=== PATIENT | male | born 1965 | race Caucasian/White ===

== ENCOUNTER → 2018-02-10 | Outpatient (CLI) | payer BC ==
[2018-02-10 11:34] LABS: Basophils % (A) 1 %; Eosinophils # (A) 0.2 k/uL (0-0.7); Eosinophils % (A) 4 %; HCT 47.4 % (39.0-53.0); HGB 16.4 gm/dL (13.0-17.5); Lymphocytes # (A) 2.6 k/uL (1.0-4.8); Lymphocytes % (A) 55 %; MCH 31.9 pg (25.0-35.0); MCHC 34.6 g/dL (31.0-37.0); MCV 92.3 fL (80.0-100.0); Mean Platelet Volume 6.5; Monocytes # (A) 0.3 k/uL (0-1.0); Monocytes % (A) 6 %; Neutrophils # (A) 1.4 k/uL (1.3-7.7); Neutrophils % (A) 30 %; Platelet Count 118 k/uL (150-450); RBC 5.13 m/uL (4.30-5.90); RDW 13.9 % (11.5-15.5); WBC 4.7 k/uL (3.8-10.6)
[2018-02-10 12:08] LABS: ALT 77 U/L (21-72); AST 96 U/L (17-59); Alkaline Phosphatase 68 U/L (38-126); Anion Gap 10 mmol/L; Blood Urea Nitrogen 19 mg/dL (9-20); Calcium 8.6 mg/dL (8.4-10.2); Carbon Dioxide 22 mmol/L (22-30); Chloride 110 mmol/L (98-107); Glucose 100 mg/dL (74-99); Potassium 4.3 mmol/L (3.5-5.1); Sodium 142 mmol/L (137-145); Total Protein 7.9 g/dL (6.3-8.2)
[2018-02-11 13:26] LABS: T4/T8 Ratio (CD4:CD8) 1.4 (1.0-3.7)
== END | disposition home or self-care (01) ==
LOC: LABWHC1 11:15
PROVIDERS: ATTEND Internal Medicine Infectious Disease
DX: B20 Human immunodeficiency virus [HIV] disease (principal)
CPT/HCPCS: 36415; 80053; 85025; 86360; 87536

== ENCOUNTER → 2018-06-08 | Outpatient (CLI) | payer BC ==
[2018-06-09 02:54] LABS: ALT 54 U/L (10-49); AST 70 U/L (14-35)
== END | disposition home or self-care (01) ==
LOC: LABWHC1 16:20
PROVIDERS: ATTEND Internal Medicine Infectious Disease
DX: R74.0 Nonspecific elevation of levels of transaminase and lactic acid dehydrogenase [LDH] (principal)
CPT/HCPCS: 36415; 84450; 84460

== ENCOUNTER → 2019-03-02 | Outpatient (CLI) | payer BC ==
[2019-03-02 10:28] LABS: Basophils # (A) 0.1 k/uL (0-0.2); Basophils % (A) 1 %; Eosinophils # (A) 0.2 k/uL (0-0.7); Eosinophils % (A) 3 %; HCT 49.1 % (39.0-53.0); HGB 17.1 gm/dL (13.0-17.5); Lymphocytes # (A) 2.6 k/uL (1.0-4.8); Lymphocytes % (A) 39 %; MCHC 34.8 g/dL (31.0-37.0); MCV 94.6 fL (80.0-100.0); Mean Platelet Volume 6.8; Monocytes # (A) 0.6 k/uL (0-1.0); Monocytes % (A) 9 %; Neutrophils % (A) 45 %; Platelet Count 137 k/uL (150-450); RBC 5.19 m/uL (4.30-5.90); RDW 14.6 % (11.5-15.5); WBC 6.8 k/uL (3.8-10.6)
[2019-03-02 16:21] LABS: African American GFR (CKD) 88.4 (60.0-200.0); Albumin/Globulin Ratio 1.29 (1.60-3.17); Anion Gap 7.2 mmol/L (4.00-12.00); BUN/Creat Ratio 14.55 Ratio (12.00-20.00); Calcium 9.1 mg/dL (8.7-10.3); Carbon Dioxide 23.8 mmol/L (21.6-31.8); Chol/HDL Ratio 3.02; Globulin 3.1 g/dL (1.6-3.3); LDL Cholesterol,Calculated 80.4 mg/dL (0.0-131.0); Potassium 4.4 mmol/L (3.5-5.5); Total Bilirubin 0.7 mg/dL (0.3-1.2); Total Protein 7.1 g/dL (6.2-8.2); VLDL Calculation 20.6 mg/dL (5.00-40.00)
[2019-03-03 13:43] LABS: T4/T8 Ratio (CD4:CD8) 1.5 (1.0-3.7)
== END | disposition home or self-care (01) ==
LOC: LABWHC1 08:51
PROVIDERS: ATTEND Internal Medicine Infectious Disease
DX: Z00.00 Encounter for general adult medical examination without abnormal findings (principal); B20 Human immunodeficiency virus [HIV] disease
CPT/HCPCS: 36415; 80053; 80061; 84443; 85025; 86360; 87536

== ENCOUNTER 2019-06-20 09:50 | Emergency (ER) | payer BC ==
[2019-06-20 10:19] VITALS: PULSE 71; RESP 18
[2019-06-20] MEDS ORDERED: KETOROLAC 30 MG/ML 1 ML VIAL IVP STA (11:16)
--- NOTE | 2019-06-20 11:19 | ED ---
General Adult HPI - General Chief complaint: Abdominal Pain Stated complaint: Back and abd pain Time Seen by Provider: 06/20/19 11:07 Source: patient, RN notes reviewed Mode of arrival: ambulatory - History of Present Illness Initial comments: 54-year-old male with a past medical history of HIV presents to the emergency department for chief complaint of right flank burning 2 days. Patient states he has had burning on the right side of his flank. States it does somewhat rad iate around to his abdomen. States his abdomen feels like a bolder is in it. States it is not bothering him much at this point. States he is passing gas. Denies fevers or chills. Denies any aggravating factors of this burning flank pain but does state that walking makes it better. Denies fevers or chills. Denies dysuria. Patient has no other complaints at this time including shortness of breath, chest pain, abdominal pain, nausea or vomiting, headache, or visual changes. - Related Data Allergies Allergy/AdvReac Type Severity Reaction Status Date / Time No Known Allergies Allergy Verified 06/20/19 10:19 Review of Systems ROS Statement: Those systems with pertinent positive or pertinent negative responses have been documented in the HPI. ROS Other: All systems not noted in ROS Statement are negative. Past Medical History Additional Past Medical History / Comment(s): hiv History of Any Multi-Drug Resistant Organisms: None Reported Additional Past Surgical History / Comment(s): pilonidal cyst removed Past Psychological History: No Psychological Hx Reported Smoking Status: Former smoker Past Alcohol Use History: Rare Past Drug Use History: None Reported General Exam General appearance: alert, in no apparent distress Head exam: Present: atraumatic, normocephalic, normal inspection Eye exam: Present: normal appearance, PERRL, EOMI. Absent: scleral icterus, conjunctival injection, periorbital swelling ENT exam: Present: normal exam, mucous membranes moist Neck exam: Present: normal inspection, full ROM. Absent: tenderness, men ingismus, lymphadenopathy Respiratory exam: Present: normal lung sounds bilaterally. Absent: respiratory distress, wheezes, rales, rhonchi, stridor Cardiovascular Exam: Present: regular rate, normal rhythm, normal heart sounds. Absent: systolic murmur, diastolic murmur, rubs, gallop, clicks GI/Abdominal exam: Present: soft, normal bowel sounds. Absent: distended, tenderness, guarding, rebound, rigid Back exam: Absent: CVA tenderness (R), CVA tenderness (L) Course Vital Signs 06/20/19 10:15 Temperature 98.5 F Pulse Rate 71 Respiratory 18 Rate Blood Pressure 133/82 O2 Sat by Pulse 97 Oximetry Medical Decision Making - Medical Decision Making 54-year-old male presents for right flank burning as well as feeling like he has pressure in his abdomen. Abdominal exam revealed a completely nontender abdomen. There is no CVA tenderness. Vitals are stable. CBC and CMP are unremarkable. Patient states he recently had a fasting glucose that was normal. Urinalysis unremarkable. No evidence of blood or white blood cells. X-ray KUB was obtained which shows an overall not obstructive bowel gas pattern. I reevaluated patient and again has a completely nontender abdomen. I discussed possibility of doing a CAT scan at this time. Patient would prefer to be discharged home to try Motrin and Tylenol and to return if he has worsening symptoms. He refused any pain medication including Toradol here in the emergency department.I discussed this case with attending Dr. Pelayo who agrees with this assessment and treatment plan. - Lab Data Result diagrams: 06/20/19 11:32 06/20/19 11:32 Lab Results 06/20/19 06/20/19 06/20/19 Range/Units 11:32 11:32 11:32 WBC 6.5 (3.8-10.6) k/uL RBC 5.19 (4.30-5.90) m/uL Hgb 17.0 (13.0-17.5) gm/dL Hct 47.9 (39.0-53.0) % MCV 92.3 (80.0-100.0) fL MCH 32.8 (25.0-35.0) pg MCHC 35.6 (31.0-37.0) g/dL RDW 13.1 (11.5-15.5) % Plt Count 144 L (150-450) k/uL Neutrophils % 45 % Lymphocytes % 42 % Monocytes % 8 % Eosinophils % 3 % Basophils % 0 % Neutrophils # 2.9 (1.3-7.7) k/uL Lymphocytes # 2.7 (1.0-4.8) k/uL Monocytes # 0.5 (0-1.0) k/uL Eosinophils # 0.2 (0-0.7) k/uL Basophils # 0.0 (0-0.2) k/uL Sodium 142 (137-145) mmol/L Potassium 4.2 (3.5-5.1) mmol/L Chloride 110 H (98-107) mmol/L Carbon Dioxide 21 L (22-30) mmol/L Anion Gap 11 mmol/L BUN 15 (9-20) mg/dL Creatinine 1.04 (0.66-1.25) mg/dL Est GFR (CKD-EPI)AfAm >90 (>60 ml/min/1.73 sqM) Est GFR (CKD-EPI)NonAf 81 (>60 ml/min/1.73 sqM) Glucose 158 H (74-99) mg/dL Calcium 9.6 (8.4-10.2) mg/dL Total Bilirubin 0.8 (0.2-1.3) mg/dL AST 76 H (17-59) U/L ALT 43 (4-49) U/L Alkaline Phosphatase 73 (38-126) U/L Total Protein 8.6 H (6.3-8.2) g/dL Albumin 4.4 (3.5-5.0) g/dL Amylase 58 (30-110) U/L Lipase 211 (23-300) U/L Urine Color Yellow Urine Appearance Clear (Clear) Urine pH 5.5 (5.0-8.0) Ur Specific Carney 1.022 (1.001-1.035) Urine Protein Negative (Negative) Urine Glucose (UA) 3+ H (Negative) Urine Ketones Negative (Negative) Urine Blood Negative (Negative) Urine Nitrite Negative (Negative) Urine Bilirubin Negative (Negative) Urine Urobilinogen <2.0 (<2.0) mg/dL Ur Leukocyte Esterase Negative (Negative) Disposition Clinical Impression: Flank pain Disposition: HOME SELF-CARE Condition: Good Instructions (If sedation given, give patient instructions): Flank Pain (ED) Additional Instructions: Please follow-up with your primary care provider in one to 2 days. If you have any worsening symptoms or develop fevers return immediately to the emergency department. Is patient prescribed a controlled substance at d/c from ED?: No Referrals: Steve Horton DO [Primary Care Provider] - 1-2 days Time of Disposition: 12:54
[2019-06-20 11:54] LABS: Basophils % (A) 0 %; Eosinophils # (A) 0.2 k/uL (0-0.7); Eosinophils % (A) 3 %; HCT 47.9 % (39.0-53.0); Lymphocytes # (A) 2.7 k/uL (1.0-4.8); Lymphocytes % (A) 42 %; MCH 32.8 pg (25.0-35.0); MCHC 35.6 g/dL (31.0-37.0); MCV 92.3 fL (80.0-100.0); Mean Platelet Volume 6.8; Monocytes # (A) 0.5 k/uL (0-1.0); Monocytes % (A) 8 %; Neutrophils # (A) 2.9 k/uL (1.3-7.7); Neutrophils % (A) 45 %; Platelet Count 144 k/uL (150-450); RBC 5.19 m/uL (4.30-5.90); RDW 13.1 % (11.5-15.5); WBC 6.5 k/uL (3.8-10.6)
[2019-06-20 12:02] LABS: ALT 43 U/L (4-49); AST 76 U/L (17-59); African American GFR (CKD) >90 (>60 ml/min/1.73 sqM); Albumin 4.4 g/dL (3.5-5.0); Alkaline Phosphatase 73 U/L (38-126); Amylase 58 U/L (30-110); Anion Gap 11 mmol/L; Blood Urea Nitrogen 15 mg/dL (9-20); Calcium 9.6 mg/dL (8.4-10.2); Carbon Dioxide 21 mmol/L (22-30); Chloride 110 mmol/L (98-107); Glucose 158 mg/dL (74-99); Non-African American GFR(CKD) 81 (>60 ml/min/1.73 sqM); Potassium 4.2 mmol/L (3.5-5.1); Sodium 142 mmol/L (137-145); Total Bilirubin 0.8 mg/dL (0.2-1.3); Total Protein 8.6 g/dL (6.3-8.2)
--- NOTE | 2019-06-20 12:03 | XR ---
EXAMINATION TYPE: XR KUB DATE OF EXAM: 06/20/2019 COMPARISON: NONE HISTORY: Pain TECHNIQUE: Single supine KUB image of the abdomen is obtained FINDINGS: Small bowel demonstrates no evidence for dilatation or air fluid levels. Gas and fecal material is seen in non-distended colon. No convincing evidence for pneumoperitoneum. No unusual calcifications. The lung bases are clear. The osseous structures are intact. IMPRESSION: 1. Overall nonobstructive bowel gas pattern.
[2019-06-20 12:07] LABS: Appearance,Urine Clear (Clear); Bilirubin,Urine Negative (Negative); Blood,Urine Negative (Negative); Color,Urine Yellow; Glucose,Urine (UA) 3+ (Negative); Ketones,Urine Negative (Negative); Leukocyte Esterase,Urine Negative (Negative); Nitrite,Urine Negative (Negative); PH, Urine 5.5 (5.0-8.0); Protein,Urine Negative (Negative); Specific Gravity,Urine 1.022 (1.001-1.035); Urobilinogen,Urine <2.0 mg/dL (<2.0)
[2019-06-20 13:07] VITALS: BP 129/88; TEMP 98.1
== END 2019-06-20 13:05 | disposition home or self-care (01) ==
LOC: EC 09:50
DX: R10.9 Unspecified abdominal pain (principal); M54.9 Dorsalgia, unspecified; R14.3 Flatulence; Z87.891 Personal history of nicotine dependence; Z53.20 Procedure and treatment not carried out because of patient's decision for unspecified reasons; Z21 Asymptomatic human immunodeficiency virus [HIV] infection status
CPT/HCPCS: 36415; 74018; 80053; 81003; 82150; 83690; 85025; 99284

== ENCOUNTER → 2020-03-19 | Outpatient (CLI) | payer BC | END | disposition home or self-care (01) | LOC: LABWHC1 10:45 | PROVIDERS: ATTEND Psychiatry & Neurology Neurology | DX: G72.9 Myopathy, unspecified (principal); R74.8 Abnormal levels of other serum enzymes | CPT/HCPCS: 36415; 82550; 83883; 86334 ==

== ENCOUNTER → 2020-06-10 | Outpatient (CLI) | payer BC ==
[2020-06-10 09:30] LABS: HCT 48.1 % (39.0-53.0); HGB 16.6 gm/dL (13.0-17.5); MCH 33.7 pg (25.0-35.0); MCHC 34.4 g/dL (31.0-37.0); MCV 97.8 fL (80.0-100.0); Mean Platelet Volume 7.4; Platelet Count 128 k/uL (150-450); RBC 4.92 m/uL (4.30-5.90); RDW 13.6 % (11.5-15.5)
== END | disposition home or self-care (01) ==
LOC: LABPAT 08:01
PROVIDERS: ATTEND Surgery
DX: Z01.818 Encounter for other preprocedural examination (principal)
CPT/HCPCS: 85027

== ENCOUNTER 2020-06-16 07:04 | Day surgery (SDC) | payer BC ==
[2020-06-11 13:04] VITALS: BMI 41.1
[~2020-06-16 07:04] MED LIST: ACETAMINOPHEN TAB 500 MG TAB PO PRN; DEXAMETHASONE SOD PHOSPHATE 4 MG/ML 1 ML VIAL IV ONE; HEPARIN SODIUM,PORCINE 5,000 UNIT/ML 1 ML VIAL SQ PRN; HYDROmorphone 0.5 MG/0.5 ML SYRINGE IVP PRN; LACTATED RINGERS 1,000 ML IV SCH; ONDANSETRON 4 MG/2 ML VIAL IVP ONE; ceFAZolin 3 GM in SODIUM CHLORIDE 0.9% 100 ML IVPB PRN
[2020-06-16 07:55] LABS: Glucose,Whole Blood 99 mg/dL (75-99)
[2020-06-16] MEDS ORDERED: LIDOCAINE 1% (10MG/ML) FOR IV START INTRADERMA ONE (08:04)
--- NOTE | 2020-06-16 08:54 | P.GSHP ---
History of Present Illness H&P Date: 06/16/20 Chief Complaint: Right inguinal hernia 55-year-old male here today for elective repair right inguinal hernia. Patient has had a bulge in the right groin for the last few years. Increasing in size. Mild pain and burning at times. No symptoms on the left. Patient is HIV-p ositive. Platelets are in the 120s. Past Medical History Additional Past Medical History / Comment(s): HIV, OCCASIONAL RASH IN FOLDS OF SKIN, ADOPTED-UNKNOWN FAMILY HX., BACK PAIN., RIGHT INGUINAL HERNIA., ? BORDERLINE DIABETES. History of Any Multi-Drug Resistant Organisms: None Reported Additional Past Surgical History / Comment(s): pilonidal cyst removed Past Anesthesia/Blood Transfusion Reactions: No Reported Reaction Past Psychological History: No Psychological Hx Reported Smoking Status: Former smoker Past Alcohol Use History: Rare Additional Past Alcohol Use History / Comment(s): QUIT SMOKING 1997 Past Drug Use History: None Reported - Past Family History Mother Family Medical History: Unable to Obtain Additional Family Medical History / Comment(s): ADOPTED Medications and Allergies Home Medications Medication Instructions Recorded Confirmed Type Elviteg/Cob/Emtri/Tenof Alafen 1 each PO DAILY 06/11/20 06/16/20 History [Genvoya Tablet] Meloxicam 15 mg PO DIRECTED PRN 06/11/20 06/16/20 History Naproxen Sodium [Aleve] 220 mg PO DIRECTED PRN 06/11/20 06/16/20 History Allergies Allergy/AdvReac Type Severity Reaction Status Date / Time No Known Allergies Allergy Verified 06/16/20 07:28 Surgical - Exam Vital Signs Temp Pulse Resp BP Pulse Ox 97.5 F L 61 18 136/68 100 06/16/20 07:41 06/16/20 07:41 06/16/20 07:41 06/16/20 07:41 06/16/20 07:41 Physical exam: General: Well-developed, well-nourished HEENT: Normocephalic, sclerae nonicteric Abdomen: Nontender, nondistended, reducible moderate sized right inguinal hernia Extremities: No edema Neuro: Alert and oriented Assessment and Plan (1) Right inguinal hernia Narrative/Plan: Will proceed with laparoscopic da Hoa assisted repair right inguinal hernia with mesh, possible bilateral at this time. Risks of bleeding, infection, recurrence, bladder and bowel injury, numbness, nerve injury, conversion to an open procedure were discussed with the patient. The patient understands and wishes to proceed. Current Visit: Yes Status: Acute Code(s): K40.90 - UNIL INGUINAL HERNIA, W/O OBST OR GANGR, NOT SPCF RECUR OMED Code(s): 936271232
[2020-06-16] MEDS ORDERED: MIDAZOLAM 2 MG/2 ML VIAL ONE (09:11)
[2020-06-16] MEDS ORDERED: GLYCOPYRROLATE 0.2 MG/ML 2 ML VIAL ONE (09:11)
[2020-06-16] MEDS ORDERED: ePHEDrine SULFATE/0.9% NACL/PF 50 MG/5 ML SYRINGE IV ONE (09:11)
[2020-06-16] MEDS ORDERED: KETAMINE 10 MG/ML 20 ML VIAL ONE (09:11)
[2020-06-16] MEDS ORDERED: SUCCINYLCHOLINE CHLORIDE VIAL 200 MG/10 ML VIAL IV ONE (09:11)
[2020-06-16] MEDS ORDERED: ROCURONIUM 10 MG/ML (10 ML VIAL) IV ONE (09:11)
[2020-06-16] MEDS ORDERED: NEOSTIGMINE 1 MG/ML 10 ML VIAL ONE (09:11)
[2020-06-16] MEDS ORDERED: PROPOFOL 10 MG/ML 20 ML VIAL IV ONE (09:11)
[2020-06-16] MEDS ORDERED: fentaNYL (PF) 50 MCG/ML 2 ML AMP ONE (09:11)
[2020-06-16] MEDS ORDERED: LIDOCAINE 1% INJ 10MG/ML (20 ML MDV) ONE (09:11)
[2020-06-16] MEDS ORDERED: BUPIVACAINE-EPI 0.5%-1:200,000 10 ML VIAL SQ ONE (09:44)
[2020-06-16] MEDS ORDERED: LACTATED RINGERS 1,000 ML IV ONE (10:06)
[2020-06-16] MEDS ORDERED: TAMSULOSIN 0.4 MG CAP.ER.24H PO STA (10:49)
--- NOTE | 2020-06-16 10:53 | P.OP ---
Date of Procedure: 06/16/20 Procedure(s) Performed: PREOPERATIVE DIAGNOSIS: Right inguinal hernia POSTOPERATIVE DIAGNOSIS: Same PROCEDURE: Laparoscopic repair right inguinal hernia with the da Hoa robot assistance with mesh SURGEON: Louis EBL: Minimal ANESTHESIA: General COMPLICATIONS: None OPERATIVE PROCEDURE: Patient was placed in the operating table in the supine position. The patient was placed under general anesthesia. The abdomen was prepped and draped in usual sterile fashion. A small curvilinear supraumbilical incision was made. The fascia was retracted anteriorly with Sisi forceps. The Veress needle was inserted. The saline drop test was normal. Insufflation took place to 15 mmHg. An 8 mm trocar was placed into the peritoneal cavity. 2 additional 8 mm trochars were placed in the right upper quadrant and left upper quadrant under visualization. The robotic arms were then brought in and docked into place. The fenestrated bipolar was used in the left arm and the laparoscopic maria elena was utilized in the right arm. A 30 8 mm scope was used in the up position. The peritoneal cavity was inspected. A very large direct right inguinal hernia present. There were no hernias seen on the left-hand side. The peritoneum was incised in a horizontal fashion cephalad to the internal inguinal ring. Following that careful dissection of the preperitoneal space took place. This took place using both electrocautery, sharp dissection but primarily blunt dissection. Visualization of the pubic tubercle and Salvador's ligament took place medially. Full dissection took place laterally as well. The hernia sac was fully dissected. The hernia defect was loosely reapproximated using a running 20 be locked suture. This same 20 be locked suture was brought medially and after the mesh was flattened out appropriately I sutured the mesh to the medial aspect of our dissection from the pubic tubercle cephalad. The peritoneal defect was then closed using a locking 2-0 VLok suture. The large hernia sac was incorporated into the perineal closure. A single 3-0 Vicryl suture was used to reapproximate a small defect in the peritoneum. The pneumoperitoneum was then evacuated. The skin of all 3 sites was closed using a 4-0 Monocryl stitch. Skin glue was then applied. DISPOSITION: Stable to recovery room
[2020-06-16 11:08] VITALS: TEMP 97
[2020-06-16 11:12] LABS: Glucose,Whole Blood 125 mg/dL (75-99)
[2020-06-16] MEDS ORDERED: ACETAMINOPHEN TAB 325 MG TAB PO SCH (12:00)
[2020-06-16 12:21] VITALS: RESP 16
[2020-06-16 13:19] VITALS: BP 133/75; PULSE 63
[2020-06-16] MEDS ORDERED: IBUPROFEN 600 MG TAB PO SCH (15:00)
== END 2020-06-16 13:33 | disposition home or self-care (01) ==
LOC: OR 07:04
PROVIDERS: ATTEND Surgery
DX: K40.90 Unilateral inguinal hernia, without obstruction or gangrene, not specified as recurrent (principal); B20 Human immunodeficiency virus [HIV] disease; E66.01 Morbid (severe) obesity due to excess calories; Z98.890 Other specified postprocedural states; Z79.899 Other long term (current) drug therapy; Z87.891 Personal history of nicotine dependence; Z68.39 Body mass index [BMI] 39.0-39.9, adult
CPT/HCPCS: 49650; C1781; J2250; J0330; J1644; J1100; J2710; J0690; J2405; J2001; J3010; J2704

== ENCOUNTER → 2021-04-20 | Outpatient (CLI) | payer BC ==
[2021-04-20 22:28] LABS: Basophils # (A) 0.05 X 10*3/uL (0.00-0.10); Basophils % (A) 0.7 %; Eosinophils # (A) 0.15 X 10*3/uL (0.04-0.35); Eosinophils % (A) 2.2 %; HCT 50.2 % (39.6-50.0); HGB 17.4 g/dL (13.0-17.0); Lymphocytes # (A) 3.42 X 10*3/uL (0.90-5.00); Lymphocytes % (A) 49.2 %; MCH 31.7 pg (27.0-32.0); MCHC 34.7 g/dL (32.0-37.0); MCV 91.4 fL (80.0-97.0); Mean Platelet Volume 9.8 fL (9.5-12.2); Monocytes # (A) 0.72 X 10*3/uL (0.20-1.00); Monocytes % (A) 10.4 %; Neutrophils % (A) 37.4 %; Platelet Count 145 X 10*3/uL (140-440); RBC 5.49 X 10*6/uL (4.40-5.60); RDW 12.5 % (11.5-14.5); WBC 6.95 X 10*3/uL (4.50-10.00)
[2021-04-21 03:55] LABS: African American GFR (CKD) 71.2 (60.0-200.0); Anion Gap 13.6 mmol/L (4.00-12.00); BUN/Creat Ratio 15.38 Ratio (12.00-20.00); Calcium 9.2 mg/dL (8.7-10.3); Carbon Dioxide 18.4 mmol/L (21.6-31.8); Non-African American GFR(CKD) 61.4 (60.0-200.0); Potassium 4.2 mmol/L (3.5-5.5)
[2021-04-21 13:11] LABS: T4/T8 Ratio (CD4:CD8) 2.2 (1.0-3.7)
[2021-04-21 21:15] LABS: HIV-1 RNA Not detected (Not detected); HIV-1 RNA, Quant <40 Copies/mL (<40)
== END | disposition home or self-care (01) ==
LOC: LABWHC1 15:47
PROVIDERS: ATTEND Internal Medicine Infectious Disease
DX: B20 Human immunodeficiency virus [HIV] disease (principal)
CPT/HCPCS: 36415; 80048; 85025; 86360; 87536

== ENCOUNTER → 2021-11-05 | Outpatient (CLI) | payer BC ==
[2021-11-05 14:20] LABS: Basophils # (A) 0.04 X 10*3/uL (0.00-0.10); Basophils % (A) 0.7 %; Eosinophils # (A) 0.18 X 10*3/uL (0.04-0.35); HCT 46.3 % (39.6-50.0); HGB 16.1 g/dL (13.0-17.0); Immature Grans, Automated 0.3 %; Lymphocytes # (A) 1.83 X 10*3/uL (0.90-5.00); Lymphocytes % (A) 30.9 %; MCH 31.8 pg (27.0-32.0); MCHC 34.8 g/dL (32.0-37.0); MCV 91.3 fL (80.0-97.0); Mean Platelet Volume 10.1 fL (9.5-12.2); Monocytes # (A) 0.73 X 10*3/uL (0.20-1.00); Monocytes % (A) 12.3 %; NRBC Per 100 WBC 0 /100 WBCS (0.0-0.0); Neutrophils # (A) 3.12 X 10*3/uL (1.80-7.70); Neutrophils % (A) 52.8 %; Platelet Count 106 X 10*3/uL (140-440); RBC 5.07 X 10*6/uL (4.40-5.60); RDW 13.1 % (11.5-14.5); WBC 5.92 X 10*3/uL (4.50-10.00)
[2021-11-05 14:49] LABS: African American GFR (CKD) 77.9 (60.0-200.0); Anion Gap 12.5 mmol/L (10.00-18.00); BUN/Creat Ratio 11.67 Ratio (12.00-20.00); Calcium 9.3 mg/dL (8.7-10.3); Carbon Dioxide 22.5 mmol/L (20.0-27.5); Non-African American GFR(CKD) 67.2 (60.0-200.0); Potassium 4.1 mmol/L (3.5-5.5)
[2021-11-06 13:11] LABS: HIV-1 RNA Not detected (Not detected); HIV-1 RNA, Quant <40 Copies/mL (<40); LOG HIV Copies/mL <1.60 (<1.60)
[2021-11-06 14:12] LABS: T4/T8 Ratio (CD4:CD8) 2.6 (1.0-3.7)
== END | disposition home or self-care (01) ==
LOC: LABWHC1 09:24
PROVIDERS: ATTEND Internal Medicine Infectious Disease
DX: B20 Human immunodeficiency virus [HIV] disease (principal)
CPT/HCPCS: 36415; 80048; 85025; 86360; 87536

== ENCOUNTER → 2022-05-18 | Outpatient (CLI) | payer BC ==
[2022-05-18 23:45] LABS: Appearance,Urine Clear (Clear); Bilirubin,Urine Negative (Negative); Blood,Urine Negative (Negative); Color,Urine Yellow (Yellow); Ketones,Urine Negative (Negative); Nitrite,Urine Negative (Negative); Specific Gravity,Urine 1.021 (1.001-1.030); Urobilinogen,Urine 0.2 (0.2,1.0)
[2022-05-19 00:01] LABS: HCT 45.6 % (39.6-50.0); MCH 31.9 pg (27.0-32.0); MCHC 35.1 g/dL (32.0-37.0); Mean Platelet Volume 9.7 fL (9.5-12.2); NRBC Per 100 WBC 0 /100 WBCS (0.0-0.0); Platelet Count 139 X 10*3/uL (140-440); RBC 5.01 X 10*6/uL (4.40-5.60); RDW 12.9 % (11.5-14.5); WBC 7.42 X 10*3/uL (4.50-10.00)
[2022-05-19 00:21] LABS: ALT 32 U/L (10-49); AST 65 U/L (14-35); African American GFR (CKD) 72.2 (60.0-200.0); Albumin 4.5 g/dL (3.8-4.9); Albumin/Globulin Ratio 1.17 (1.60-3.17); Alkaline Phosphatase 79 U/L (41-126); BUN/Creat Ratio 10.39 Ratio (12.00-20.00); Blood Urea Nitrogen 13.2 mg/dL (9.0-27.0); Calcium 9.5 mg/dL (8.7-10.3); Carbon Dioxide 19.9 mmol/L (20.0-27.5); Chloride 105 mmol/L (96-109); Chol/HDL Ratio 4.07 Ratio; Globulin 3.9 g/dL (1.6-3.3); Glucose 94 mg/dL (70-110); LDL Cholesterol,Calculated 124.7 mg/dL (0.0-131.0); Non-African American GFR(CKD) 62.3 (60.0-200.0); Potassium 4.1 mmol/L (3.5-5.5); Sodium 139 mmol/L (135-145); Total Protein 8.4 g/dL (6.2-8.2)
== END | disposition home or self-care (01) ==
LOC: LABWHC1 15:38
PROVIDERS: ATTEND Internal Medicine Infectious Disease
DX: Z00.00 Encounter for general adult medical examination without abnormal findings (principal); E03.9 Hypothyroidism, unspecified; B20 Human immunodeficiency virus [HIV] disease
CPT/HCPCS: 36415; 80053; 80061; 81003; 82306; 83036; 84153; 84439; 84443; 85027

== ENCOUNTER → 2023-06-06 | Outpatient (CLI) | payer BC ==
--- NOTE | 2023-06-07 08:51 | CT ---
EXAMINATION TYPE: CT abdomen pelvis wo con DATE OF EXAM: 06/06/2023 COMPARISON: None HISTORY: nausea xfew weeks. CT DLP: 1817.20 mGycm Automated exposure control for dose reduction was used. TECHNIQUE: Helical acquisition of images was performed from the lung bases through the pelvis. FINDINGS: LUNG BASES: No significant abnormality is appreciated. LIVER/GB: Liver low attenuation to suggest PANCREAS: No significant abnormality is seen. SPLEEN: Spleen is prominent size measuring 14 cm.. ADRENALS: No significant abnormality is seen. KIDNEYS: A punctate 2 mm nonobstructing left renal calculus. FREE AIR: No free air is visualized RETROPERITONEAL ADENOPATHY: None visualized URINARY BLADDER: Limited due to decompression.. PELVIC ADENOPATHY: None visualized. OSSEOUS STRUCTURES: Bilateral hip arthropathy. Hypertrophic degenerative changes of the spine. BOWEL: No evidence of obstruction. Small hiatal hernia. Stomach limited in assessment due to incompl ete distention. OTHER: There is a 5.6 x 5.1 cm mass in the right inguinal canal recommend ultrasound. IMPRESSION: 1. THERE IS A 5.6 X 5.1 CM MASS IN THE RIGHT INGUINAL CANAL RECOMMEND ULTRASOUND. 2. HEPATIC STEATOSIS 3. PUNCTATE 1 TO 2 MM 1 TO 2 MM UPPER POLE NONOBSTRUCTING LEFT RENAL. 4. MILD SPLENOMEGALY.
== END | disposition home or self-care (01) ==
LOC: RADCTMAIN 16:17
PROVIDERS: ATTEND Family Medicine
DX: K76.0 Fatty (change of) liver, not elsewhere classified (principal); N20.0 Calculus of kidney; R16.1 Splenomegaly, not elsewhere classified; R19.09 Other intra-abdominal and pelvic swelling, mass and lump
CPT/HCPCS: 74176

== ENCOUNTER → 2023-10-18 | Outpatient (CLI) | payer BC ==
[2023-10-18 19:43] LABS: Basophils # (A) 0.04 X 10*3/uL (0.00-0.10); Basophils % (A) 0.9 %; Eosinophils # (A) 0.17 X 10*3/uL (0.04-0.35); Eosinophils % (A) 3.8 %; HCT 38.7 % (39.6-50.0); HGB 13.6 g/dL (13.0-17.0); Immature Grans, Automated 0 %; Immature Platelet Fraction 5.7 % (1.1-6.1); Lymphocytes # (A) 2.49 X 10*3/uL (0.90-5.00); Lymphocytes % (A) 55.1 %; MCH 35.2 pg (27.0-32.0); MCHC 35.1 g/dL (32.0-37.0); MCV 100.3 FL (80.0-97.0); Mean Platelet Volume 10.2 FL (9.5-12.2); Monocytes # (A) 0.38 X 10*3/uL (0.20-1.00); Monocytes % (A) 8.4 %; NRBC Per 100 WBC 0 X 10*3/uL (0.00-0.01); Neutrophils # (A) 1.44 X 10*3/uL (1.80-7.70); Neutrophils % (A) 31.8 %; Platelet Count 68 X 10*3/uL (140-440); RBC 3.86 X 10*6/uL (4.40-5.60); RBC Morphology Normal (Normal); RDW 14.1 % (11.5-14.5); WBC 4.52 X 10*3/uL (4.50-10.00)
[2023-10-18 21:24] LABS: T4, Free (Free Thyroxine) 0.78 ng/dL (0.80-1.80)
== END | disposition home or self-care (01) ==
LOC: LABWHC1 16:05
PROVIDERS: ATTEND Family Medicine
DX: E03.9 Hypothyroidism, unspecified (principal); D61.818 Other pancytopenia
CPT/HCPCS: 36415; 82607; 82746; 83690; 84439; 84443; 85025

== ENCOUNTER → 2024-06-29 | Outpatient (CLI) | payer BC ==
[2024-06-29 20:02] LABS: ALT 11 U/L (10-49); AST 59 U/L (14-35); Chol/HDL Ratio 3.97 Ratio; LDL Cholesterol,Calculated 58.8 mg/dL (0.0-131.0)
== END | disposition home or self-care (01) ==
LOC: LABWHC1 15:52
PROVIDERS: ATTEND Internal Medicine Interventional Cardiology
DX: E78.2 Mixed hyperlipidemia (principal)
CPT/HCPCS: 36415; 80061; 84450; 84460